=== PATIENT | female | born 1950 | race Caucasian/White ===

== ENCOUNTER → 2020-07-21 | Outpatient (CLI) | payer OTHER | LOC: M.LAB 15:39 | PROVIDERS: ATTEND Internal Medicine Cardiovascular Disease | DX: Z01.812 Encounter for preprocedural laboratory examination (principal); Z20.828 Contact with and (suspected) exposure to other viral communicable diseases; K22.70 Barrett's esophagus without dysplasia ==

== ENCOUNTER 2021-05-06 14:29 | Inpatient (IN) | payer OTHER ==
[~2021-05-06] VITALS: Ht 162.6 cm; Wt 90.7 kg
--- NOTE | ~2021-05-06 | EKG ---
[place] [address] ELECTROCARDIOGRAM REPORT Name: RUI KAISER Room: [address] ADM IN .R.#: [id number] Admission: 05/06/21 Attend Phys: Claudio Alejandro Discharge: Date of : 48 Date of Service: 05/07/21 1432 Report #: [id number] THIS REPORT FOR: //name// [facility] Test Date: 2021-05-07 Test Time: 14:32:58 Pat Name: RUI KAISER Department: Room: [address] Gender: F Research Spec: : 1950 Requested By: Sumit Smallwood Order Number: [id number] Reading MD: Measurements Intervals [place] Rate: 108 P: 54 FL: 163 QRS: 16 QRSD: 104 T: 12 QT: 317 QTc: 425 Interpretive Statements Sinus tachycardia Repol abnrm suggests ischemia, anterior leads Borderline ST elevation, lateral leads Compared to ECG 05/06/2021 14:41:00 Early repolarization now present Possible ischemia now present ST (T wave) deviation now present Sinus rhythm no longer present T-wave abnormality no longer present [email or web address] By: 31 31 Epiphany Epiphany, /ERROL
[2021-05-06 14:37] VITALS: BP 162/58
[2021-05-06] MEDS ORDERED: ZYLOPRIM300 MG PO (14:45)
[2021-05-06] MEDS ORDERED: PROAIR HFA8.5 GM INH ×2 (14:45→20:22)
[2021-05-06] MEDS ORDERED: ASA81BEC PO (14:46)
[2021-05-06] MEDS ORDERED: CLOTRIMAZOLE-BE15 GM (14:46)
[2021-05-06] MEDS ORDERED: LIPITOR 20 MG T20 M1 PO (14:46)
[2021-05-06] MEDS ORDERED: NEURONTIN 300M300 M2 PO ×3 (14:47→20:30)
[2021-05-06] MEDS ORDERED: IPRAT-ALBUT 0.5-3 ML IH (14:47)
[2021-05-06] MEDS ORDERED: OMEPRAZOLE40 MG PO (14:48)
[2021-05-06] MEDS ORDERED: LEVO-T100 MCG PO (14:48)
[2021-05-06] MEDS ORDERED: TOPROL XL100 MG PO (14:48)
[2021-05-06 15:06] LABS: ABSOLUTE BASOPHILS 0.1 thou/uL (0.0-0.2); ABSOLUTE EOSINOPHILS 0.3 thou/uL (0.0-0.7); ABSOLUTE LYMPHOCYTES 2.5 thou/uL (0.8-5.3); ABSOLUTE NEUTROPHILS 6.4 thou/uL (1.6-8.1); BASOPHILS 1.1 %; EOSINOPHILS 2.6 %; HEMATOCRIT 37.4 % (37.0-47.0); HEMOGLOBIN 12.7 gm/dL (12.0-15.0); LYMPHOCYTES 24.4 %; MCH 32.3 pg (26.0-34.0); MCHC 33.9 g/dL (28.0-37.0); MCV 95.5 fL (80.0-100.0); MONOCYTES 9.7 %; MPV 7.1 fl. (7.2-11.1); NUCLEATED RBCS 0 /100WBC; PLATELET COUNT* 310 thou/uL (150-400); POLYS 62.2 %; RBC 3.92 mil/uL (4.20-5.00); RDW-CV 15.9 % (10.5-14.5); WBC 10.2 thou/uL (4.0-11.0)
[2021-05-06 15:28] LABS: CALCIUM 9.5 mg/dL (8.5-10.1); CREATININE 1.2 mg/dL (0.6-1.3); POTASSIUM 4.2 mmol/L (3.5-5.1)
[2021-05-06 15:38] LABS: ALBUMIN 3.5 g/dL (3.4-5.0); TOTAL BILIRUBIN 0.1 mg/dL (<0.1-1.0); TOTAL PROTEIN 7.7 g/dL (6.4-8.2)
[2021-05-06 17:34] VITALS: BP 128/62
[2021-05-06 18:00] VITALS: BP 139/57
[2021-05-06] MEDS ORDERED: ALLOPURINOL 30300 M1 PO (20:23)
[2021-05-06] MEDS ORDERED: BAYER CHEWABLE81 MG PO (20:23)
[2021-05-06] MEDS ORDERED: ATORVASTATIN CA20 MG PO (20:24)
[2021-05-06] MEDS ORDERED: 3-DAY VAGINAL C21 GM VAG (20:25)
[2021-05-06] MEDS ORDERED: FLONASE 0.05%50 MCG NARES (20:26)
[2021-05-07] VITALS: BP 129/74
[2021-05-07 04:21] VITALS: BP 110/75
[2021-05-07 08:00] VITALS: BP 128/76
--- NOTE | 2021-05-07 08:36 | EKG ---
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
[2021-05-07 14:34] VITALS: BP 80/51
[2021-05-07 15:38] LABS: PO2 72.4 mmHg (75.0-100.0)
[2021-05-07 15:44] LABS: PCO2 64.2 mmHg (35.0-45.0); pH 6.987 (7.340-7.450)
[2021-05-07 16:08] LABS: PO2 127.4 mmHg (75.0-100.0); pH 7.057 (7.340-7.450)
--- NOTE | 2021-05-07 16:36 | EKG ---
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: : 1950 Requested By: Sumit Smallwood Order Number: [id number] Tony MD: Eusebio Giles Measurements Intervals [place] Rate: 108 P: 54 HI: 163 QRS: 16 QRSD: 104 T: 12 QT: 317 QTc: 425 Interpretive Statements Sinus tachycardia Repol abnrm suggests anterior ischemia or posterior injury Borderline ST elevation, lateral leads; possible acute lateral injury Compared to ECG 05/06/2021 14:41:00 Early repolarization now present Possible ischemia now present ST (T wave) deviation now present Sinus rate has increased T-wave abnormality no longer present Electronically Signed On 05-07-2021 16:36:37 CDT by Eusebio Giles [email or web address] <ELECTRONICALLY SIGNED> By: Eusebio Giles MD, [facility] 05/07/21 1636 31 143 Eusebio Giles MD, [facility] /EPI
[2021-05-07 16:45] LABS: BE -16.1 mmol/L (-2 to +3); PO2 105.4 mmHg (75.0-100.0)
[2021-05-07 16:50] LABS: PCO2 56.1 mmHg (35.0-45.0); pH 7.031 (7.340-7.450)
[2021-05-07 17:13] LABS: HEMATOCRIT 30.1 % (37.0-47.0); MCH 32.2 pg (26.0-34.0); MCHC 31.6 g/dL (28.0-37.0); MPV 7.4 fl. (7.2-11.1); RBC 2.96 mil/uL (4.20-5.00); RDW-CV 16.1 % (10.5-14.5); WBC 19.8 thou/uL (4.0-11.0)
[2021-05-07 17:15] LABS: HEMOGLOBIN 9.5 gm/dL (12.0-15.0); MCV 101.9 fL (80.0-100.0)
[2021-05-07 17:21] LABS: CREATININE 1.4 mg/dL (0.6-1.3); POTASSIUM 3.2 mmol/L (3.5-5.1)
[2021-05-07 17:25] LABS: CALCIUM 6.4 mg/dL (8.5-10.1)
--- NOTE | 2021-05-08 14:37 | CARD ---
[address] [address] CARDIAC CATH REPORT Name: RUI KAISER Room: [address]#: [id number] Admission: 05/06/21 Attend Phys: Sheyla York Discharge: 05/07/21 Date of : 48 Report #: [id number] THIS REPORT FOR: cc: Eusebio Shah MD [facility] Blanc MD [facility] Hope MD [facility]Mo[facility] ~ APPROVED REPORT Study performed: 05/07/2021 10:43:25 Patient Details Patient Status: In-Patient Room #: The patient is a 71 year-old female Event Personnel Sumit Smallwood Rn Hyperbaric, Eusebio Giles Product Consultant, Moraima Talbot RN Tractor Sweeper Driver, Natacha Tate RTR Scrub, Siobhan Linares RTR Monitor, Violet Reyes RN Tractor Sweeper Driver Procedures Performed Art Access - R femoral artery, Art Access - L femoral artery, Left Heart Cath w/or w/o Coronaries LHC, MENG Place w/wo Plasty Single Left Main/Proximal LAD , PTCA Single Vessel CIRC PCISINGLE, Left femoral artery Hemostasis w/ Angioseal , Right femoral artery Hemostasis w/ Mynx Indication Non-STEMI Risk Factors Obesity, Hypercholesterolemia, Hypertension Admission/Lab Medications/Medications given during procedure Oxygen Nasal cannula 2 l per min, Oxygen Nasal cannula 3 l per min, Oxygen Nasal cannula 4 l per min, Angiomax IV 13.5 ml, Angiomax Drip IV 31.7 ml per hr, Oxygen Non-rebreather 10 l per min, Effient PO 60 mg, Aspirin PO 81 mg Procedure Narrative The patient was brought urgently to the Cardiac Catheterization Laboratory and was prepped and draped in a sterile manner. The left femoral was infiltrated with 2% Lidocaine subcutaneous anesthesia. IV conscious sedation was used throughout procedure with appropriate monitoring and was performed in the presence [place] [address] CARDIAC CATH REPORT Name: RUI KAISER Joya Room: [address]#: [id number] Admission: 05/06/21 Attend Phys: Sheyla York Discharge: 05/07/21 Date of : 48 Report #: [id number] who was an independent trained observer other than the physician performing the procedure. A 6F [place] sheath was inserted into the left femoral artery. Coronary angiography was performed using coronary diagnostic catheters. The right coronary system was accessed and visualized with a 6F JR4 catheter. The left coronary system was accessed and visualized with a 6F JL4 catheter. The left ventricle was accessed and visualized with a 6F Pigtail catheter. Left ventricular/Aortic Valve gradient assessed via catheter pullback. Left ventriculogram was performed in BAÑUELOS projection. Pre-demployment femoral angiogram was performed . Closure device was deployed with a 6 Fr Angioseal STS. The patient tolerated the procedure well and there were no complications associated with the procedure. The right femoral was infiltrated with 2% Lidocaine subcutaneous anesthesia. A 6F [place] sheath was inserted into the right femoral artery. Initially, the cath procedure started from the right groin. A Closure device was deployed with a 6F Mynx, in the right femoral artery Intraoperative Conscious Sedation Sedation start time: 11:37 Case end Time: 14:02 Fentanyl 200 mcg Versed 5 mg Fluoro Time: 46 minutes Dose: DAP 434225 cGycm2 7508 mGy Contrast Type and Amount: Visipaque 565 ml Coronary Angiography The patient's coronary anatomy is right dominant. Diagnostic Cath Left Main 75% distal stenosis LAD 90% proximal stenosis with 60% mid vessel stenosis Circumflex 90% calcified ostial proximal stenosis with 80% calcified mid vessel stenosis Right Coronary 100% mid vessel occlusion with [id number]-vs-[id number] collaterals filling the distal right coronary artery from the LAD Left Ventriculography The left ventricle is normal in size with normal contractility. The left ventricular ejection fraction is estimated to be 65%. Left ventricular wall motion abnormalities are not present. There [place] [address] CARDIAC CATH REPORT Name: RUI KAISER Joya Room: [address]#: [id number] Admission: 05/06/21 Attend Phys: Sheyla York Discharge: 05/07/21 Date of : 48 Report #: [id number] Hemodynamics The aortic pressure is 123/63 mmHg with a mean of mmHg. The left ventricular pressure is 122/2 mmHg with a mean of mmHg. The left ventricular end diastolic pressure is 12 mmHg. There was no gradient across the aortic valve upon pullback. PCI Technique Lesion Anticoagulation was achieved with Angiomax. Patient was preloaded with Angiomax IV 13.5 ml. Percutaneous coronary intervention was performed on the Distal left Main and Proximal Left Anterior Descending Artery. The lesion stenosis prior to intervention was 90% with THIERRY 3 flow. A 6F XB LAD 3.5 Guide Catheter was used to engage the left main ostium. A ProwaterFlex 180CM Interventional Guidewire was used to cross the lesion. BALLOON DILATION A Balloon catheter Trek RX 2.5 X 12 was inserted and inflated up to 18.00atm for 13seconds. Additional Inflation: 18.00atm for 10seconds. A Balloon catheter NC Trek RX 3.0 x 12 was inserted and inflated up to 18 thao for 13 seconds; 22 thao for 11 seconds. STENT DEPLOYMENT A drug-eluting stent [place] RX Stent 3.0X12mm was inserted and inflated up to 8.00atm for 11seconds. Additional Inflation: 14.00atm for 10seconds. Additional Inflation: 17.00atm for 12seconds. Additional Inflation: 18 thao for 7 seconds. Prior to 2nd stent placement, a Balloon catheter NC Trek RX 3.5 x 8 was inserted and inflated up to 18 thao for 10 seconds; 20 thao for 9 seconds. A 2nd drug-eluting stent [place] RX Stent 2.75 x 8 was inserted and inflated up to 14 thao for 10 seconds; 16 thao for 7 seconds; 18 thao for 9 seconds. POST STENT DEPLOYMENT BALLOON DILATION A Balloon catheter NC Trek RX 3.5 X 8 was inserted and inflated up to 18.00atm for 9seconds. Additional Inflation: 22.00atm for 10seconds. Final angiography reveals 10 % stenosis with THIERRY 3 flow. COMMENTS Procedure was technically complex by virtue of severe left main proximal circumflex and proximal LAD calcification requiring complex wiring and significant lesion preparation [place] [address] CARDIAC CATH REPORT Name: RUI KAISER Room: [address]#: [id number] Admission: 05/06/21 Attend Phys: Sheyla York Discharge: 05/07/21 Date of : 48 Report #: [id number] deployment PCI Technique Lesion 2 Percutaneous Coronary Intervention was performed on the proximal circumflex artery segment. The lesion stenosis prior to intervention was 90% with THIERRY 3 flow. Balloon Dilation A Balloon catheter Trek RX 2.5 X 12 was inserted and inflated up to 12.00atm for 9seconds. Additional Inflation: 14.00atm for 11seconds. Additional Inflation: 14.00atm for 9seconds. A Balloon catheter Trek RX 2.5 x 8 was inserted and inflated up to 12 thao for 13 seconds; 14 thao for 9 seconds; 14 thao for 8 seconds. Final angiography reveals 75 % stenosis with THIERRY 3 flow. Conclusion 1. Severe multivessel coronary artery disease characterized by the following: A 75% calcified distal left main coronary stenosis B 90% calcified proximal LAD stenosis with 60% mid vessel stenosis C 90% heavily calcified proximal circumflex stenosis with 80% calcified mid circumflex stenosis D dominant right artery with 100% occlusion in its midportion with [id number]-[id number] collaterals filling the distal right coronary artery from the LAD 2. Normal left ventricular systolic function, estimated ejection fraction being 65% 3. Normal left-sided hemodynamic study 4. Successful PCI with deployment of a drug-eluting stent spanning the distal left main and the proximal LAD with 10% residual narrowing and THIERRY-3 flow to the distal LAD 4. PTCA of the 90% calcified ostial circumflex stenosis with 75% residual narrowing and THIERRY-3 flow to the distal vessel Recommendations [address] [address] CARDIAC CATH REPORT Name: RUI KAISER Room: [address]#: [id number] Admission: 05/06/21 Attend Phys: Sheyla York Discharge: 05/07/21 Date of : 48 Report #: [id number] Cardiac Risk Reduction Program Aggressive Medical Therapy Medications Administered Angiomax bolus and infusion. Diagnostic Cath Approved by: Sumit Smallwood MD Date/Time: 05/08/2021 14:32:22 <ELECTRONICALLY SIGNED> By: Eusebio Giles MD, [facility] 05/08/21 1437 1437 1437Eusebio Giles MD, FACC /INF
--- NOTE | 2021-05-08 15:21 | CARD ---
[address] [address] CARDIAC CATH REPORT Name: RUI KAISER Room: [address]#: [id number] Admission: 05/06/21 Attend Phys: Sheyla York Discharge: 05/07/21 Date of : 48 Report #: [id number] THIS REPORT FOR: cc: Eusebio Shah MD [facility] Bl[facility] MD [facility] Hope MD [facility] ~ APPROVED REPORT Study performed: 05/07/2021 14:57:18 Patient Details Patient Status: In-Patient Room #: The patient is a 71 year-old female Event Personnel Eusebio Giles Batch Freezer, Sumit Smallwood Crystalizer Operator, Moraima Talbot RN RN, Madi Benavides RTR Scrub, Natacha Tate RTR Monitor, Brittni Xie Core Shaper Procedures Performed Art Access - L femoral artery Faraz Access - L femoral vein Coronary Angiography Only PTCA Single Vessel CIRC Admission/Lab Medications/Medications given during procedure Lidocaine Subcut 14 ml, Angiomax IV 7 ml, Angiomax Drip IV 31.7 ml per hr, Oxygen Nasal cannula 5 l per min, 0.9% Sodium Chloride IV 200 ml per hr, Dopamine IV 5 mcg per kg per min Procedure Narrative The patient was brought emergently to the Cardiac Catheterization Laboratory and was prepped and draped in a sterile manner. The left femoral was infiltrated with 2% Lidocaine subcutaneous anesthesia. A [place] 6 FR sheath was inserted into the left femoral artery. Coronary angiography was performed using coronary diagnostic catheters. The left coronary system was accessed and visualized with a Guide XBLAD 3.5 catheter. After sequential balloon inflations in the Circumflex artery the patient developed V Fib. We administered the first shock at 300 J. Called a code blue. Chest compressions were commenced. The patient was shocked multiple times times at 360 J See transportation department supervisor notes in [facility] for code medication and details. We obtained venous access in the left femoral vein. . Patient was intubated. Patient developed sinus bradycardia. Both arterial and venous sheaths were sutured in place. The [place] [address] CARDIAC CATH REPORT Name: AWILDA,RUI A Room: [address]#: [id number] Admission: 05/06/21 Attend Phys: Sheyla York Discharge: 05/07/21 Date of : 48 Report #: [id number] 450 mg of IV amiodarone prior to multiple efforts at defibrillation as noted above. She also received multiple boluses of epinephrine and 2 Amps of sodium bicarb and were administered after systemic acidosis was defined by arterial blood gases. We commenced an infusion of dopamine at 5 mcg/kg/min. The patient was transferred to the ICU in critical condition. Intraoperative Conscious Sedation No sedation given. Case start was 1456 and case end was 1559. Fluoro Time: 7.1 minutes Dose: DAP 10270 cGycm2 999 mGy Contrast Type and Amount: Visipaque 100 ml Diagnostic Cath Left Main 10% distal narrowing with a widely patent stent LAD Widely patent proximal LAD stent with 50% mid vessel narrowing Circumflex 75% ostial with 80% proximalmid circumflex stenosis and 100% distal occlusion PCI Technique Lesion Anticoagulation was achieved with Angiomax bolus and drip. Patient was preloaded with Angiomax IV 7 ml. Percutaneous coronary intervention was performed on the distal circumflex artery segment. The lesion stenosis prior to intervention was 100% with THIERRY 0 flow. A 6F XB LAD 3.5 Guide Catheter was used to engage the left ostium. A IG: BMW 190cm Interventional Guidewire was used to cross the lesion. BALLOON DILATION A Balloon catheter Mini Trek RX 1.5 X 8 was inserted and inflated up to 17.00atm for 9seconds. Additional Inflation: 17.00atm for 4seconds. Additional Inflation: 17.00atm for 6seconds. We proceeded with sequential inflations of the 1.5 mm balloon in the circumflex and there was THIERRY I flow to the distal circulation. At this point, the patient developed multiple episodes of ventricular fibrillation requiring defibrillation and extensive CPR. Subsequent to this, repeat angiographic assessment revealed THIERRY 0 flow to the distal circumflex coronary artery. Final angiography reveals 100 % stenosis with THIERRY 0 [place] [address] CARDIAC CATH REPORT Name: RUI KAISER Room: [address]#: [id number] Admission: 05/06/21 Attend Phys: Sheyla York Discharge: 05/07/21 Date of : 48 Report #: [id number] Conclusion 1. Total occlusion of the distal circumflex after recent PCI of the ostial and proximal circumflex 2. Widely patent stent in the distal left main and proximal LAD with THIERRY-3 flow to the distal LAD 2. PTCA of the distal circumflex with congregational of THIERRY I flow to the distal circumflex 3. After recurrent episodes of ventricular fibrillation and extensive CPR, repeat angiographic assessment demonstrated 100% circumflex occlusion with THIERRY 0 flow to the distal circulation Recommendations After extensive resuscitative efforts, the patient was transferred to the ICU in critical condition Diagnostic Cath Approved by: Sumit Smallwood MD Date/Time: 05/08/2021 15:15:51 <ELECTRONICALLY SIGNED> By: Eusebio Giles MD, [facility] 05/08/21 1521 1521 1521Eusebio Giles MD, FAC /INF
--- NOTE | 2021-05-09 13:27 | CON ---
[address] [address] CONSULTATION Name: RUI KAISER Room: [address]#: [id number] Admission: 05/06/21 Attend Phys: Sheyla York Discharge: 05/07/21 Date of : 48 Report #: [id number] THIS REPORT FOR: cc: Eusebio Shah MD [facility] Eusebio Shah MD [facility] Sumit Smallwood MD [facility] ~ DOC #: [id number] cc: Eusebio Shah DO, Dr. Wagner Michael J. Liston, MD DATE OF CONSULTATION: 05/07/2021 CARDIOLOGY CONSULTATION INDICATION: Dyspnea on exertion and chest pressure. HISTORY OF PRESENT ILLNESS: The patient is a very pleasant 71-year-old white female with history of nonocclusive carotid vascular disease without prior intervention. She has peripheral vascular disease with prior bypass surgery to the lower extremities and apparently abdominal aortic aneurysm that has likely been intervened upon as well. She is not having claudication. She has no history of TIA or stroke. Ten days ago, she had an episode of significant chest pressure, heaviness and tightness, described as someone sitting on her chest. She deferred treatment at that time. Since that time, she has had significant dyspnea on exertion. She denies orthopnea or PND. She continues to have chest tightness. A 12-lead EKG shows sinus rhythm with T-wave inversion. There were no ST-segment changes on her initial EKG at this admission. Her troponins are mildly elevated at 0.13, 0.18 and 0.15. NT-proBNP was only minimally elevated at 852. PAST MEDICAL HISTORY: 1. Peripheral vascular disease as outlined above. 2. Carotid vascular disease as outlined above. 3. Abdominal aortic aneurysm as outlined above. 4. Hypothyroidism. 5. Stage 3 chronic renal insufficiency. 6. Probable coronary artery disease. 7. Chronic tobacco use. 8. Emphysema. 9. History of DVT after vascular surgery with IVC filter placement. 10. Interstitial cystitis. PAST SURGICAL HISTORY: She has had multiple bladder surgeries per her description. She has had previous bypass surgery [place] [address] CONSULTATION Name: AWILDA,RUI A Room: [address]#: [id number] Admission: 05/06/21 Attend Phys: Sheyla York Discharge: 05/07/21 Date of : 48 Report #: [id number] apparent AAA stenting and repair at that time. FAMILY HISTORY: Noncontributory. SOCIAL HISTORY: The patient is . She drinks alcohol occasionally. She quit smoking tobacco cigarettes 8 years ago and has smoked an E-cigarettes since. ALLERGIES: CODEINE, WHICH CAUSES VOMITING. HOME MEDICATIONS: Combivent inhaler as directed daily, albuterol inhaler 2 puffs as directed, atorvastatin 20 mg daily, metoprolol succinate 100 mg daily, aspirin 81 mg daily, gabapentin 300 mg daily and 600 mg at bedtime, fluticasone nasal inhaler 2 sprays as needed, omeprazole 40 mg daily, levothyroxine 100 mcg daily, clotrimazole betamethasone daily and allopurinol 300 mg daily. REVIEW OF SYSTEMS: On 14-point review of systems, she reports emphysema, chest discomfort and tightness, dyspnea on exertion, hypothyroidism, pain with urination, occasional hematuria, history of DVT, seasonal allergies and medical allergies as outlined above. She wears reading glasses. She has decreased hearing and dentures. Otherwise, 14-point review of systems was unremarkable. PHYSICAL EXAMINATION: VITAL SIGNS: Blood pressure 128/76, pulse 98 and regular. GENERAL: This is a pleasant white female in no distress who appears mildly anxious. HEENT: Head is normocephalic, atraumatic. Extraocular muscles intact. Mucous membranes are moist. NECK: Thick. I do not appreciate obvious jugular venous distention or bruit. CHEST: Reveals diminished breath sounds without wheezes or rales. CARDIAC: Reveals a regular rhythm with normal S1 and S2. I do not appreciate gallop or murmur. ABDOMEN: Reveals normal bowel sounds. Abdomen is soft and nontender. EXTREMITIES: Show no edema. Peripheral pulses are 2+ and palpable. SKIN: Dry. DIAGNOSTIC DATA: A 12-lead EKG shows sinus rhythm with nonspecific T-wave flattening and inversion. I did not appreciate significant ST segment abnormalities. LABORATORY DATA: Labs are reviewed. White blood cell count 10.2; hemoglobin 12.7 and platelet count 310,000. Sodium 140, potassium 4.2, chloride 105, bicarb 24, BUN 21, creatinine 1.2, serum glucose 94. Troponins minimally elevated [place] [address] CONSULTATION Name: RUI KAISER Room: [address] [place].#: [id number] Admission: 05/06/21 Attend Phys: Claudio AngelSheyla Lo Discharge: 05/07/21 Date of : 48 Report #: [id number] Chest x-ray shows mild diffuse interstitial opacities, mild interstitial edema or pneumonitis. IMPRESSION AND RECOMMENDATIONS 1. Non-ST elevation myocardial infarction with possible recent completed infarct. We will plan to proceed to coronary angiography and left heart catheterization. Further intervention pending those results. The patient has already been given aspirin. She is presently on a heparin drip per Cardiology protocol. Nitro paste was started last night. We will continue home medications including beta flory and statin agent. 2. Probable coronary artery disease. We will treat as outlined above. 3. Acute heart failure, likely combined. The patient was given IV Lasix yesterday with partial relief of symptoms. We will obtain echocardiogram. 4. Hypertension, presently stable. 5. Dyslipidemia. Continue statin agent. Recommend goal LDL of 70 or less. 6. Chronic tobacco use in the form of an E-cigarette. Cessation advised. MD VAL Kim/GARY/PASTORA <ELECTRONICALLY SIGNED> By: Sumit Smallwood MD, FACC 05/09/21 1327 0826 [id number] Hospitalleticia Smallwood MD, FACC /nt
== END 2021-05-07 17:55 | DRG 246 ==
LOC: M.ERS 14:29 → M.ICU 15:36 → M.TBA-ER 15:36 → M.2W 15:36 → M.ICU 05-07 16:36
PROVIDERS: Emergency Medicine Emergency Medical Services; Internal Medicine; Internal Medicine Cardiovascular Disease; ADMIT Internal Medicine; ATTEND Internal Medicine
PROC: 4A023N7 Measurement of Cardiac Sampling and Pressure, Left Heart, Percutaneous Approach (ICD-10-PCS; principal; 2021-05-07)
PROC: 02703ZZ Dilation of Coronary Artery, One Artery, Percutaneous Approach (ICD-10-PCS; principal; 2021-05-07)
PROC: B211YZZ Fluoroscopy of Multiple Coronary Arteries using Other Contrast (ICD-10-PCS; principal; 2021-05-07)
PROC: 027136Z Dilation of Coronary Artery, Two Arteries with Three Drug-eluting Intraluminal Devices, Percutaneous Approach (ICD-10-PCS; principal; 2021-05-07)
PROC: B41FYZZ Fluoroscopy of Right Lower Extremity Arteries using Other Contrast (ICD-10-PCS; principal; 2021-05-07)
PROC: B215YZZ Fluoroscopy of Left Heart using Other Contrast (ICD-10-PCS; principal; 2021-05-07)
DX: I21.4 Non-ST elevation (NSTEMI) myocardial infarction (principal); I50.41 Acute combined systolic (congestive) and diastolic (congestive) heart failure; I13.0 Hypertensive heart and chronic kidney disease with heart failure and stage 1 through stage 4 chronic kidney disease, or unspecified chronic kidney disease; N18.30 Chronic kidney disease, stage 3 unspecified; J43.9 Emphysema, unspecified; E03.9 Hypothyroidism, unspecified; I73.9 Peripheral vascular disease, unspecified; E78.5 Hyperlipidemia, unspecified; E78.00 Pure hypercholesterolemia, unspecified; I24.9 Acute ischemic heart disease, unspecified; Z20.822 Contact with and (suspected) exposure to COVID-19; I25.119 Atherosclerotic heart disease of native coronary artery with unspecified angina pectoris; Z79.82 Long term (current) use of aspirin; Z79.899 Other long term (current) drug therapy; Z86.718 Personal history of other venous thrombosis and embolism; Z88.6 Allergy status to analgesic agent; Z71.6 Tobacco abuse counseling; Z82.49 Family history of ischemic heart disease and other diseases of the circulatory system